=== PATIENT | female | born 1970 | race Caucasian/White ===

== ENCOUNTER → 2017-06-27 | Outpatient (CLI) | payer OTHER | LOC: M RAD 08:30 | DX: Z12.31 Encounter for screening mammogram for malignant neoplasm of breast (principal) ==

== ENCOUNTER → 2018-10-04 | Outpatient (CLI) | payer OTHER ==
--- NOTE | 2018-10-05 09:18 | REP ---
Right foot four views : There is no fracture or dislocation. Mineralization and joint spaces are normal. There are calcaneal Achilles and plantar spurs There are no calcifications or foreign bodies. Impression: Calcaneal spurs, otherwise, negative right foot . Electronically Signed by Master Robin MD 10/04/2018 03:44 P
== END ==
LOC: M WUC 14:48
PROVIDERS: ATTEND Physician Assistant
DX: M77.31 Calcaneal spur, right foot (principal)

== ENCOUNTER → 2022-01-10 | Outpatient (CLI) | payer OTHER | LOC: M WHC 08:38 | PROVIDERS: ATTEND Obstetrics & Gynecology | DX: Z12.31 Encounter for screening mammogram for malignant neoplasm of breast (principal); Z13.820 Encounter for screening for osteoporosis; Z80.41 Family history of malignant neoplasm of ovary ==